=== PATIENT | female | born 1995 | race Caucasian/White ===

== ENCOUNTER 2018-04-26 10:41 | Outpatient (CLI) | payer MEDICAID, SELFPAY ==
[2018-04-26 12:34] LABS: Cholesterol 145 mg/dL (50-200); HDL Cholesterol 59 mg/dL (40-60); LDL CHOLESTEROL 78 mg/dL (<100); Triglyceride 57 mg/dL (30-150)
== END 2018-04-26 11:01 ==
PROVIDERS: PCP Nurse Practitioner Family; Visit Provider Nurse Practitioner Family
DX: Z13.220 Encounter for screening for lipoid disorders (principal)
CPT/HCPCS: 36415; 80061; 83721

== ENCOUNTER 2018-05-09 12:49 | Outpatient (REF) | payer MEDICAID, SELFPAY ==
--- NOTE | 2018-05-09 11:00 | PAPFT_PTH ---
PATIENT: Jayla Botello LOC: [facility] U#:[id number] AGE/SX: 23/F ROOM: RE05/09/[address]: MICHAEL Ulloa : 1995 BED: DIS: 05/09/2018 SPEC #: [id number] RECD: 05/09/18 13:14 STATUS: CADEN RETamar #: [id number] KATHY: 05/09/18 11:[address]: Alana Thompson DEPT: [facility] Cytology RECD BY: Janet Yip ENTERED: 05/09/18 13:15 SP TYPE: PAPFT OLIVA DR: Chelsea Alfred APRN Tissues: 1 - CX/ENDOCX FOR PAP SMEARS Procedures: PAP THIN PREP/UVM Screening Comments: [id number]
== END 2018-05-09 13:09 ==
LOC: LBN 12:49
PROVIDERS: PCP Nurse Practitioner Family; Visit Provider Nurse Practitioner Family
DX: Z12.4 Encounter for screening for malignant neoplasm of cervix (principal)
CPT/HCPCS: 88142

== ENCOUNTER 2018-07-18 14:22 | Emergency (ER) | payer MEDICAID, SELFPAY ==
[2018-07-18 14:39] VITALS: BP 132/63; PULSE 82; RESP 16; TEMP 36.7; O2SAT 96
--- NOTE | 2018-07-18 15:53 | ED.GENADUL_ITS ---
Discharge Plan Disposition Patient Disposition: HOME Discharge Details Chief Complaint: Abd Prob Clinical Impression: Umbilical pain, Cellulitis, abdominal wall Primary Care Provider: Chelsea Alfred ED Provider: Kevin Snyder Home Meds and New Rx's Prescriptions: New cephalexin [Keflex] 500 mg capsule 500 mg PO QID Qty: 39 RF: 0 doxycycline hyclate 100 mg tablet 100 mg PO BID Qty: 19 RF: 0 Continued levonorgestrel-ethinyl estrad [Aviane] 0.1-20 mg-mcg tablet 1 tab PO DAILY Qty: 84 RF: 3 albuterol sulfate [ProAir HFA] 8.5 GM HFA aerosol inhaler 2 puff Inhalation Q4H PRN Qty: 1 RF: 4 Discharge Instructions Instructions: Cellulitis (ED) Additional Instructions: Please keep bellybutton clean and dry. Please take antibiotic as prescribed. Please follow-up in general surgery clinic early next week. Call for an appointment. Return to the ER for any worsening or new concerning symptoms. Stand Alone Forms: Work Release Referrals: Chelsea Alfred NP [Primary Care Provider] - Michelle Weathers MD [ [facility] STAFF PHYSICIAN] - Discharge Data Discharge Date/Time-TO BE ENTERED AT DEPARTURE: 07/18/18 16:35 Medical Decision Making 23-year-old female here with purulent discharge from umbilicus. Localized tenderness about the umbilicus with no swelling or induration. No abdominal mass. Consider urachal remnant and infection versus cellulitis. Plan to treat with Keflex. I called and spoke with Dr. Escobar who agrees with oral antibiotic and follow-up in clinic. I explained treatment plan to patient and her mother. I advised return immediately should she have any worsening or new concerning symptoms. HPI General Mode of arrival: ambulatory . Date/Time Provider Initiated Documentation: 07/18/18 15:09 . Limitations to Documentation: no limitations . Information obtained by: patient and family . HPI Narrative: 23-year-old female here with clear yellow discharge from bellybutton. This started yesterday. Symptoms have persisted. Area is also noted to be sore. No redness. No trauma. This is not happened in the past. No associated fever or rash. Related Data Home Medications Medication Instructions Recorded Confirmed albuterol sulfate [ProAir HFA] 2 puff INHALATION Q4H PRN #1 05/15/17 05/09/18 inhaler levonorgestrel-ethinyl estradiol 1 tab PO DAILY #84 tab 05/09/18 07/18/18 0.1 mg-20 mcg tablet cephalexin [Keflex] 500 mg PO QID #39 cap 07/18/18 doxycycline hyclate 100 mg PO BID #19 tab 07/18/18 Previous Rx's Medication Instructions Recorded albuterol sulfate [ProAir HFA] 2 puff INHALATION Q4H PRN #1 05/15/17 inhaler levonorgestrel-ethinyl estradiol 1 tab PO DAILY #84 tab 05/09/18 0.1 mg-20 mcg tablet cephalexin [Keflex] 500 mg PO QID #39 cap 07/18/18 doxycycline hyclate 100 mg PO BID #19 tab 07/18/18 Allergies Allergy/AdvReac Type Severity Reaction Status Date / Time No Known Allergies Allergy Verified 07/22/18 15:28 General Stated Complaint: Abd Prob SHIREEN: 3 Review of Systems Review of Systems All systems reviewed & are unremarkable except as noted in HPI and below PFSH Medical History Contraception (Acute) Obesity (BMI 30.0-34.9) (Chronic) Intermittent asthma (Chronic 12/01/15) 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 Uncle Diabetes Paternal Grandmother Diabetes Paternal Grandfather Kidney malignancy Other Pancreatic cancer Social History Smoking/Tobacco Use Status: Never Alcohol Intake: current Alcohol Intake frequency: holidays/special occasions only Drug use: Never Substance use type: does not use Adopted: No Caregiver/Support person: No Foster care: No Household members: family and other Details: lives with parents current occupation: [employer] Pets and animals: Yes Sexually active: No Do you think of yourself as: straight/heterosexual Current gender identity: female What type of physical activity do you participate in: walking Frequency: 5-6 times per week Seatbelt use: always Helmet use: Yes Drive intox or ride w/intox 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 Working smoke detector in home: Yes Fire extinguisher in home: Yes Firearms in home: Yes Firearms unloaded and locked: Yes Do you feel safe in your relationship?: Yes Female Reproductive History Menstrual control method: pills History History 0 Para Hx # Term Pregnancies Multiple births Hx # Pregnancies Ectopic pregnancies AB induced Hx Number of Living Children AB spontaneous Exam Const General: cooperative and no acute distress HENMT Mouth: moist mucous membranes Eyes Conjunctivae: normal conjunctivae Sclera: normal sclerae Resp Auscultation: clear to auscultation bilaterally, no rales, no rhonchi and no wheezes Cardio Jugular venous pressure: no JVD Rate: regular rate and not tachycardic Rhythm: regular rhythm GI Palpation: soft, not firm, no guarding, no masses, not rigid and nontender Other: scant clear discharge noted from umbilicus, no purulence, no induration or fluctuance, no erythema Skin General skin exam: no rashes or lesions noted Rashes: no rashes Neuro General: alert, awake, oriented x3 and tone normal Extrem General: no edema Course Vital Signs Temperature 36.7 C 07/18/18 14:39 Pulse 82 07/18/18 14:39 Respiratory Rate 16 07/18/18 14:39 Blood Pressure 132/63 07/18/18 14:39 Pulse Oximetry 96 07/18/18 14:39 Temperature 36.7 C 07/18/18 14:39 Temperature Source Skin 07/18/18 14:39 Pulse 82 07/18/18 14:39 Respiratory Rate 16 07/18/18 14:39 Respiratory Effort Non-Labored 07/18/18 14:39 Blood Pressure 132/63 07/18/18 14:39 Blood Pressure Position Sitting 07/18/18 14:39 Pulse Oximetry 96 07/18/18 14:39 Oxygen Delivery Method Room Air 07/18/18 14:39 Oxygen Flow Rate 0 07/18/18 14:39 Pain Level 7 07/18/18 14:39
[2018-07-18] MEDS: Cephalexin 500 MG CAP PO (16:29)
[2018-07-18] MEDS: Doxycycline Hyclate 100 MG CAP PO (16:29)
[2018-07-18 16:40] VITALS: BP 128/61; PULSE 79; RESP 16; TEMP 36.7; O2SAT 98
== END 2018-07-18 16:35 | disposition home or self-care (01) ==
PROVIDERS: Emergency Provider Student in an Organized Health Care Education/Training Program; PCP Nurse Practitioner Family
DX: R10.33 Periumbilical pain (principal); L03.311 Cellulitis of abdominal wall
CPT/HCPCS: 99283

== ENCOUNTER 2019-04-22 10:49 | Emergency (ER) | payer MEDICAID, SELFPAY ==
[2019-04-22 10:58] VITALS: BP 127/84; PULSE 93; RESP 18; TEMP 36.1; O2SAT 98
== END 2019-04-22 12:13 ==
LOC: ER 11:01
PROVIDERS: PCP Nurse Practitioner Family
DX: Z53.29 Procedure and treatment not carried out because of patient's decision for other reasons (principal)

== ENCOUNTER 2019-05-12 10:30 | Outpatient (REF) | payer MEDICAID, SELFPAY ==
--- NOTE | 2019-05-12 10:15 | PAPFT_PTH ---
PATIENT: Jayla Botello LOC: [facility] U#:[id number] AGE/SX: 24/F ROOM: RE05/12/[address]: MICHAEL Ulloa : 1995 BED: DIS: 05/12/2019 SPEC #: [id number] RECD: 05/12/19 12:39 STATUS: CADEN REQ #: [id number] KATHY: 05/12/19 10:[address]: Alana Thompson DEPT: [facility] Cytology RECD BY: Janet Yip ENTERED: 05/12/19 12:40 SP TYPE: PAPFT OTHR DR: Chelsea Alfred APRN Tissues: 1 - CX/ENDOCX FOR PAP SMEARS Procedures: PAP THIN PREP/UVM Screening Comments: [id number]
[2019-05-13 13:51] LABS: Chlamydia Result Negative (Negative); GC Result Negative (Negative)
== END 2019-05-12 10:50 ==
LOC: LBN 10:30
PROVIDERS: PCP Nurse Practitioner Family; Visit Provider Nurse Practitioner Family
DX: Z11.3 Encounter for screening for infections with a predominantly sexual mode of transmission (principal); Z12.4 Encounter for screening for malignant neoplasm of cervix
CPT/HCPCS: 87491; 87591; 88142

== ENCOUNTER 2019-09-16 07:14 | Emergency (ER) | payer MEDICAID, SELFPAY ==
[2019-09-16 07:19] VITALS: BP 127/78; PULSE 104; RESP 16; TEMP 37.1; O2SAT 97
--- NOTE | 2019-09-16 08:16 | ED.GENADUL_ITS ---
Discharge Plan Disposition Patient Disposition: HOME Condition: Stable Discharge Details Chief Complaint: RespSymp Clinical Impression: Asthma exacerbation, Congestion of left ear Primary Care Provider: Chelsea Alfred ED Provider: Hedy Medrano Home Meds and New Rx's Prescriptions: New prednisone 20 mg tablet 60 mg PO DAILY 5 Days Qty: 15 RF: 0 fluticasone propionate 50 mcg/actuation spray,suspension 1 spray DAI DAILY 7 Days Qty: 11.1 RF: 0 Continued levonorgestrel-ethinyl estrad [Aviane] 0.1-20 mg-mcg tablet 1 tab PO DAILY Qty: 84 RF: 4 albuterol sulfate [ProAir HFA] 8.5 GM HFA aerosol inhaler 2 puff Inhalation Q4H PRN Qty: 1 RF: 4 Discharge Instructions Instructions: Asthma (ED) Additional Instructions: Follow up with primary care provider in 3-5 days. Return to ED sooner if any worsening or concerns. Increase oral fluids. Please take Tylenol or Ibuprofen with food every 4-6 hours as needed for pain and swelling. Take medications as directed continue using your inhaler 1 to 2 puffs every 4 hours as needed for wheezing. Stand Alone Forms: PENDING COVID-19 TESTING, Work Release Referrals: Chelsea Alfred, [facility] [Primary Care Provider] - Medical Decision Making Patient is a history of asthma on initial exam she has diminished lung sounds bilaterally is not moving much air and seems pretty tight respiratory osorio so at this time I feel patient would benefit from nebulizer treatment DuoNeb ordered. Since we are doing a neb COVID and strep swabs ordered versus doing outpatient testing. 0900: Patient reevaluation, feels better after nebulizer treatment, lung sounds have increased movement of air, no wheezing noted. Discussed home care and medications. Will place patient on a 5-day stent of 60 mg prednisone encouraged continued use of hand-held and Angela, and given fluticasone nasal spray for sinus congestion and ear pain. Given work note to be off work until Sunday pending negative Covid test. Currently the patient does have a concerning travel history to a high risk area, and/or direct or known indirect exposure to an area and/or patient's with known coronavirus activity. The patient demonstrates some concerning red flags as noted by the CDC for coronavirus including fever, cough, and/or shortness of breath. The patient looks notably clinically well, and does not demonstrate evidence of respiratory distress, significant or severe illness, or sepsis. Per CDC recommendations, coronavirus testing has been performed and is approved by the [facility]. Additionally patient currently does not demonstrate symptoms indicative of admission or further observation here. At this time based on the patient's current clinical picture symptoms are likely secondary to a non- coronavirus viral illness. Out of an abundance of precaution taking into account the current level of national concern, the patient's entire clinical picture, and CDC recommendations, the patient can be discharged home. Per CDC recommendations we will recommend a 14-day quarantine of the patient I have discussed good handwashing techniques, the importance of a mask, and we have also included CDC recommendations for home monitoring and isolation. I have extensively reviewed the treatment plan and discharge instructions with the patient. I have addressed all patient concerns at this time. The patient was made aware of what symptoms to monitor for that would warrant a return to the emergency department. I also discussed the importance of calling the patient's PCP, as well as the ED for any concerns or prior to return. Discussed the plan with the patient, they demonstrate verbal understanding and agreement with our assessment and plan at this time. This text was generated using [employer] dictation system, please disregard any oddities of phrase or misspellings. HPI General Mode of arrival: ambulatory . Date/Time Provider Initiated Documentation: 09/16/19 07:33 . Limitations to Documentation: no limitations . Information obtained by: patient . HPI Narrative: 24-year-old female presents to the ED with cough, left ear pain, head pressure x1 week. She does have a history of asthma and uses a handheld inhaler which she used today. She does work at a assisted living facility. She denies any recent travel, no fever. Related Data Home Medications Medication Instructions Recorded Confirmed albuterol sulfate [ProAir HFA] 2 puff INHALATION Q4H PRN #1 05/15/17 09/16/19 inhaler levonorgestrel-ethinyl estradiol 1 tab PO DAILY #84 tab 05/12/19 09/16/19 0.1 mg-20 mcg tablet fluticasone propionate 1 spray DAI DAILY 7 Days #11.1 ml 09/16/19 prednisone 60 mg PO DAILY 5 Days #15 tab 09/16/19 Previous Rx's Medication Instructions Recorded albuterol sulfate [ProAir HFA] 2 puff INHALATION Q4H PRN #1 05/15/17 inhaler levonorgestrel-ethinyl estradiol 1 tab PO DAILY #84 tab 05/12/19 0.1 mg-20 mcg tablet fluticasone propionate 1 spray DAI DAILY 7 Days #11.1 ml 09/16/19 prednisone 60 mg PO DAILY 5 Days #15 tab 09/16/19 Allergies Allergy/AdvReac Type Severity Reaction Status Date / Time No Known Allergies Allergy Verified 09/16/19 07:25 General Stated Complaint: RespSymp SHIREEN: 3 Review of Systems Narrative: Constitutional: Negative for weight loss, alert and oriented, well groomed, normal body habitus, appears comfortable. HEENT: Denies trauma, headaches, blurry vision, nasal discharge, sore throat, trouble swallowing. Chest: Denies chest pain, palpitations, irregular rhythm, hypertension. She is mildly tachycardic at 104 per Respiratory: Denies hemoptysis. Positive shortness of breath, positive dry cough. History of asthma. GI: Denies abdominal pain, nausea, vomiting, diarrhea, constipation. : Denies dysuria, hematuria, flank pain, rectal bleeding. Neuro: Denies dizziness, blurry vision, weakness, syncope, headache or facial numbness. Hematologic: Denies easy bruising, intolerance to heat or cold, hair loss. 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 Uncle Diabetes Paternal Grandmother Diabetes Paternal Grandfather Kidney malignancy Other Pancreatic cancer Social History Smoking/Tobacco Use Status: Never Alcohol Intake: current Alcohol Intake frequency: holidays/special occasions only Drug use: Never Substance use type: does not use Adopted: No Caregiver/Support person: No Foster care: No Household members: family and other Details: lives with parents current occupation: [employer] Pets and animals: Yes Sexually active: No Do you think of yourself as: straight/heterosexual Current gender identity: female What type of physical activity do you participate in: walking Frequency: 5-6 times per week Seatbelt use: always Helmet use: Yes Drive intox or ride w/intox 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 Appears stated age. Normal body habitus. Head: Normocephalic, no trauma. Eyes: Pupils PERRLA, Red reflex noted, EOM's intact. Eyelids symmetrical without lesions, discharge, or swelling. ENT: Right TM partially visualized due to cerumen impaction, left TM is bulging, no erythema, external ear normal to inspection, no mastoid TTP, swelling, or erythema, Nasal turbinates WNL, no nasal discharge. Normal dentition, Posterior pharynx erythema noted, left tonsils 2+ right tonsils 1+, no exudate. Chest: RRR, Normal S1, S2, distal pulses intact. Resp: Lungs diminished to auscultation bilaterally, no wheezes, rales, or rhonchi. Dry cough noted. Musculoskeletal: Normal gait, 5/5 strength to all four extremities. Skin: No suspicious rashes or lesions. Capillary refill less than 2 sec. Neurologic: Cranial nerves II-XII intact. Alert and oriented x 3. DTR's intact. Hematologic/Lymphatic: No ecchymosis, no lymphadenopathy. Course Vital Signs Vital signs: Vital Signs Temperature 37.1 C 09/16/19 07:19 Pulse 104 H 0526/20 07:19 Respiratory Rate 16 09/16/19 07:19 Blood Pressure 127/78 09/16/19 07:19 Pulse Oximetry 97 09/16/19 07:19 Temperature 37.1 C 09/16/19 07:19 Temperature Source Oral 09/16/19 07:19 Pulse 104 H 09/16/19 07:19 Respiratory Rate 16 09/16/19 07:19 Respiratory Effort Non-Labored 09/16/19 07:26 Respiratory Depth Normal 09/16/19 07:26 Blood Pressure 127/78 09/16/19 07:19 Blood Pressure Position Sitting 09/16/19 07:19 Pulse Oximetry 97 09/16/19 07:19 Oxygen Delivery Method Room Air 09/16/19 07:19 Oxygen Flow Rate 0 09/16/19 07:19 Pain Level 10 09/16/19 07:19
[2019-09-16] MEDS: Albuterol/Ipratropium 3 ML UPD VIAL UPD (08:30)
[2019-09-16] MEDS: predniSONE 20 MG TAB 60 MG PO (08:30)
[2019-09-16 09:10] VITALS: BP 127/78; PULSE 116; RESP 15; TEMP 37; O2SAT 98
[2019-09-17 21:03] LABS: COVID-19 RT-PCR UVMMC Result Negative (Negative)
== END 2019-09-16 09:11 | disposition home or self-care (01) ==
PROVIDERS: Emergency Provider Registered Nurse Emergency; PCP Nurse Practitioner Family
DX: J45.901 Unspecified asthma with (acute) exacerbation (principal); H93.8X2 Other specified disorders of left ear
CPT/HCPCS: 87880; 94640; 99283; U0003; 87081; J7512; J7620

== ENCOUNTER 2020-05-21 14:50 | Outpatient (REF) | payer OTHER, SELFPAY ==
--- NOTE | 2020-05-21 13:15 | PAPFT_PTH ---
PATIENT: Jayla Botello LOC: [facility] U#:[id number] AGE/SX: 25/F ROOM: RE05/21/[address]: MICHAEL Ulloa : 1995 BED: DIS: 05/21/2020 SPEC #: [id number] RECD: 05/21/20 17:41 STATUS: CADEN RETamar #: [id number] KATHY: 05/21/20 13:[address]: Alana Thompson DEPT: [facility] Cytology RECD BY: Janet Yip ENTERED: 05/21/20 17:41 SP TYPE: PAPFT OLIVA DR: Chelsea Alfred, MISHA Tissues: 1 - CX/ENDOCX FOR PAP SMEARS Procedures: PAP THIN PREP/UVM Screening Comments: [id number]
== END 2020-05-21 15:10 ==
LOC: LBN 14:50
PROVIDERS: PCP Nurse Practitioner Family; Visit Provider Nurse Practitioner Family
DX: Z12.4 Encounter for screening for malignant neoplasm of cervix (principal)
CPT/HCPCS: 88142

== ENCOUNTER 2021-02-17 02:09 | Outpatient (CLI) | payer OTHER, SELFPAY ==
[2021-02-18 10:13] LABS: HIV-1/2 Ag & Ab Screen Negative (Negative)
[2021-02-18 10:33] LABS: Hepatitis C Ab w Rflx HCV PCR Negative (Negative)
== END 2021-02-17 02:10 | disposition home or self-care (01) ==
LOC: LBO 02:09
PROVIDERS: PCP Nurse Practitioner Family; Visit Provider Nurse Practitioner Family
DX: Z11.59 Encounter for screening for other viral diseases (principal); Z11.4 Encounter for screening for human immunodeficiency virus [HIV]
CPT/HCPCS: 36415; 86803; 87389

== ENCOUNTER 2021-03-07 03:41 | Outpatient (CLI) | payer OTHER, SELFPAY | END 2021-03-07 03:42 | disposition home or self-care (01) | LOC: LBO 03:41 | PROVIDERS: PCP Nurse Practitioner Family; Visit Provider Nurse Practitioner Family | DX: E66.9 Obesity, unspecified (principal); Z13.1 Encounter for screening for diabetes mellitus; Z83.3 Family history of diabetes mellitus | CPT/HCPCS: 36415; 83036 ==

== ENCOUNTER 2022-10-04 16:27 | Outpatient (CLI) | payer OTHER, SELFPAY ==
[2022-10-04 16:04] LABS: Microalb ug/mg Crea 10.7 ug/mg Cr
[2022-10-04 17:34] LABS: ALT 31 U/L (14-59); AST 15 U/L (15-37); Albumin 3.9 g/dL (3.4-5.0); Alkaline Phosphatase 68 U/L (46-116); Anion Gap 8.8 mmol/L (3-11); BUN 11 mg/dL (7-18); Bilirubin, Total 0.2 mg/dL (0.2-1.0); CO2 28.2 mmol/L (21.0-32.0); CREATININE 0.8 mg/dL (0.55-1.02); Calcium 9.3 mg/dL (8.5-10.1); Chloride 105 mmol/L (98-107); Glucose 94 mg/dL (74-106); Potassium 4.1 mmol/L (3.5-5.1); Sodium 142 mmol/L (136-145); Total Protein 8.1 g/dL (6.4-8.2)
== END 2022-10-04 16:28 | disposition home or self-care (01) ==
LOC: LBO 16:28
PROVIDERS: PCP Nurse Practitioner Family; Visit Provider Nurse Practitioner Family
DX: E11.9 Type 2 diabetes mellitus without complications (principal); Z51.81 Encounter for therapeutic drug level monitoring
CPT/HCPCS: 36415; 80053; 82043; 82570

== ENCOUNTER 2023-11-27 03:19 | Outpatient (CLI) | payer OTHER, SELFPAY ==
[2023-11-27] MEDS: Methacholine 100 MG VIAL IH (17:06)
[2023-11-27] MEDS: Inhaler, Assist Device 1 EACH MC (17:06)
[2023-11-27] MEDS: Albuterol HFA 18 GM 200 PUFF INH IH (17:06)
--- NOTE | 2023-11-28 08:49 | W.PFT ---
Date of service: 11/27/23 Time of Service: 14:00 Pulmonary Function Test Result Requesting Provider Blanca Estrada Indications: Asthma Impression PFTs Spirometry shows normal FEV1/FVC of 74%. Normal FEV1 with no reversibility after bronchodilator. Flow volume curve is normal Methacholine challenge Baseline FEV1 of 3.48 L. After incremental doses of methacholine patient demonstrated a 41% decrease in FEV1 at 0.25 mg/mL. Impression Positive study consistent with asthma Clinical Correlation therefore is recommended.
== END 2023-11-27 03:20 | disposition home or self-care (01) ==
LOC: RT 03:19
PROVIDERS: PCP Nurse Practitioner Adult Health; Visit Provider Nurse Practitioner Family
DX: J45.20 Mild intermittent asthma, uncomplicated (principal)
CPT/HCPCS: 00123; 94060; 94070; 94726; 94729; 94010; J7674

== ENCOUNTER 2024-01-10 03:00 | Outpatient (CLI) | payer OTHER, SELFPAY ==
[2024-01-10 08:35] LABS: Hemoglobin A1C 5.5 % (<5.7)
[2024-01-10 08:46] LABS: ALT 24 U/L (14-59); AST 13 U/L (15-37); Albumin 3.8 g/dL (3.4-5.0); Alkaline Phosphatase 62 U/L (46-116); Anion Gap 8.7 mmol/L (3-11); BUN 14 mg/dL (7-18); Bilirubin, Total 0.22 mg/dL (0.2-1.0); CO2 27.3 mmol/L (21.0-32.0); CREATININE 0.9 mg/dL (0.55-1.02); Calcium 9.2 mg/dL (8.5-10.1); Calculated LDL 82 mg/dL (<100); Chloride 104 mmol/L (98-107); Cholesterol 164 mg/dL (<200); Estimated GFR 90.42 (mL/min/1.73m2); Glucose 102 mg/dL (74-106); HDL Cholesterol 60 mg/dL (40-60); Potassium 4.5 mmol/L (3.5-5.1); Sodium 140 mmol/L (136-145); TSH (W/Ref FT4) 1.96 uIU/mL (0.36-3.74); Total Protein 8.4 g/dL (6.4-8.2); Triglyceride 114 mg/dL (<150)
== END 2024-01-10 03:01 | disposition home or self-care (01) ==
LOC: LBO 03:00
PROVIDERS: PCP Nurse Practitioner Adult Health; Referring Provider Nurse Practitioner Adult Health; Visit Provider Nurse Practitioner Adult Health
DX: E11.9 Type 2 diabetes mellitus without complications (principal); E66.09 Other obesity due to excess calories; Z68.38 Body mass index [BMI] 38.0-38.9, adult
CPT/HCPCS: 36415; 80053; 80061; 83036; 84443

== ENCOUNTER 2024-11-13 02:34 | Outpatient (CLI) | payer OTHER, SELFPAY ==
[2024-11-13 16:23] LABS: Abs Immature Grans 0.02 10^3/uL (0.0-0.06); HCT 38.3 % (36.0-46.0); HGB 12.3 g/dL (11.2-15.7); Immature Grans % 0.2 %; MCH 28.5 pg (27.0-33.0); MCHC 32.1 % (32.0-36.0); MCV 89 fL (80-95); MPV 8.7 fL (8.0-11.0); Platelet Count 324 10^3/uL (130-400); RBC 4.32 10^6/uL (3.93-5.22); RDW 13.2 % (11.7-14.6); RDW-SD 43.0 fL; WBC 8.34 10^3/uL (4.4-10.8)
[2024-11-13 16:33] LABS: Hemoglobin A1C 5.2 % (<5.7)
[2024-11-13 17:24] LABS: ALT 19 U/L (14-59); AST 12 U/L (15-37); Albumin 3.8 g/dL (3.4-5.0); Alkaline Phosphatase 50 U/L (46-116); Anion Gap 10.7 mmol/L (3-11); BUN 10 mg/dL (7-18); Bilirubin, Total 0.2 mg/dL (0.2-1.0); CO2 26.3 mmol/L (21.0-32.0); Calcium 8.9 mg/dL (8.5-10.1); Chloride 104 mmol/L (98-107); Estimated GFR 121.49 (mL/min/1.73m2); Glucose 66 mg/dL (74-106); Lipase 30 U/L (<78); Potassium 3.9 mmol/L (3.5-5.1); Sodium 141 mmol/L (136-145); Total Protein 8.0 g/dL (6.4-8.2)
== END 2024-11-13 02:35 | disposition home or self-care (01) ==
LOC: LBO 02:34
PROVIDERS: PCP Nurse Practitioner Adult Health; Visit Provider Nurse Practitioner Adult Health
DX: Z51.81 Encounter for therapeutic drug level monitoring (principal); J45.20 Mild intermittent asthma, uncomplicated; R73.03 Prediabetes; E66.09 Other obesity due to excess calories; Z68.38 Body mass index [BMI] 38.0-38.9, adult
CPT/HCPCS: 36415; 80053; 83690; 83036; 85025

== ENCOUNTER 2025-04-13 15:51 | Outpatient (CLI) | payer OTHER, SELFPAY ==
--- NOTE | 2025-04-13 15:00 | DI.RAD_ITS ---
Exam(s) XR WRIST RT COMPLETE EXAM: XR WRIST RT COMPLETE CLINICAL HISTORY: right wrist pain. TECHNIQUE: 2D digital imaging was performed of the right wrist. Three views were obtained. PA, lateral and oblique views were obtained. COMPARISON: No exams were available for comparison FINDINGS: BONES: No acute fracture is present. No bony destructive lesion is seen. JOINTS: The carpal bones are normally aligned. SOFT TISSUE: Normal. IMPRESSION: Unremarkable radiographs of the right wrist. DATA REPOSITORY: RADIATION DOSE DELIVERED:
== END 2025-04-13 15:52 | disposition home or self-care (01) ==
LOC: DIORS 15:51
PROVIDERS: PCP Nurse Practitioner Adult Health; Visit Provider Physician Assistant
DX: M25.531 Pain in right wrist (principal)
CPT/HCPCS: 73110

== ENCOUNTER 2025-04-22 11:51 | Day surgery (SDC) | payer OTHER, SELFPAY ==
--- NOTE | 2025-04-22 08:38 | ANES.PREOP_ITS ---
General Info Date of Service Date Performed: 04/22/25 Height: 5 ft 9 in Weight: 96 kg Body Mass Index (BMI): 31.2 Surgical Procedure: Operation Date: 04/22/25 14:55 Proposed Procedure Side Surgeon p Wrist Volar Cyst Excision Right Hammad Garnica MD Meds Allergies and Home Medications Allergies Allergy/AdvReac Type Severity Reaction Status Date / Time No Known Allergies Allergy Verified 04/22/25 12:17 Home Medication ?Medication ?Instructions ?Recorded norgestimate 0.25 mg-ethinyl 1 tab PO DAILY 02/19/23 estradiol 0.035 mg tablet (Sprintec (28)) albuterol sulfate 90 mcg/actuation See Rx Instructions .Route 11/09/23 aerosol inhaler .COMPLEX #9 grams inhalational spacing device #10 ea 11/09/23 (Aerovent Plus spacer) cetirizine 10 mg capsule (Zyrtec) 10 mg PO DAILY PRN 0 12/27/23 fluticasone propionate 50 2 spray intranasal DAILY PRN nasal 05/07/24 mcg/actuation nasal congestion #16 grams spray,suspension (Flonase Allergy Relief) ondansetron HCl 4 mg tablet 4 mg PO Q8H PRN nausea and 05/07/24 vomiting #30 tabs famotidine 40 mg tablet (Pepcid) 40 mg PO BID PRN hear tburn #180 01/19/25 tabs tirzepatide (weight loss) 7.5 7.5 mg (0.5 mL) subcut Q WEEK #2 mL 01/19/25 mg/0.5 mL subcutaneous pen injector (Zepbound) Symbicort 80 mcg-4.5 mcg/actuation 1 - 2 puff inhalati on BID #6.9 01/21/25 HFA aerosol inhaler grams (budesonide-formoterol) Current Visit Medications: Current Medications Generic Name Dose Route Start Last Admin Trade Name Freq PRN Reason Stop Dose Admin Ringer's Solution 1,000 mls @ 80 mls/hr 04/22/25 06:00 IV 04/22/25 23:59 INFUSION DEDRICK Cefazolin Sodium/Dextrose 2 gm in 50 mls @ 100 mls/hr 04/22/25 06:00 Ancef Duplex IVPB 04/22/25 23:59 PREOP DEDRICK Sodium Chloride 0 ml 04/22/25 06:00 Normal Saline Flush 10 Ml Syr IV 04/22/25 23:59 PRN PRN Sodium Chloride 0 ml 04/22/25 06:00 Normal Saline 10 Ml Vial IJ 04/22/25 23:59 DIRECTED PRN Sterile Water 0 ml 04/22/25 06:00 Water,Injection,Sterile 10 Ml Vial IJ 04/22/25 23:59 DIRECTED PRN PFSH Active Problems Active Problems: Problem Status Onset Code Rash and nonspecific skin eruption Acute R21 Prediabetes Acute R73.03 Ganglion cyst of volar aspect of right wrist Acute ~06/2023 M67.431 Pain in left foot Acute M79.672 Obesity Chronic E66.9 Intermittent asthma Chronic 12/01/15 J45.20 Medical History Medical History Type 2 diabetes mellitus ?Incorrect diagnosis (see 07/19/23 note) Gestational diabetes Slipped upper femoral epiphysis (01/13/11) SCFE 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 Surgical History Surgical History History of hip surgery x3 Tooth extraction extraction 4 wisdom teeth Tobacco Smoking/Tobacco Use Status: Never Passive smoking exposure: No Alcohol Alcohol Intake: current Alcohol intake frequency: holidays/special occasions only Substance Use Substance use: Never Substance use type: does not use Prental History History 0 Para Hx # Term Pregnancies Multiple births Hx # Pregnancies Ectopic pregnancies AB induced Hx Number of Living Children AB spontaneous Anesthesia Assessment and Plan Anesthesia History Personal History: No History of Anesthesia Complications Family History: No Family History of Anesthesia Complications Exercise Tolerance Exercise Tolerance: Metabolic Equivalents>4 Cardiac & Pulmonary Exam Cardiac Exam: Normal S1/S2 Heart Sounds Pulmonary Exam: Clear Bilateral Breath Sounds Implantable Cardiac Device Does patient have a Pacemaker or an ICD?: No Airway Exam Known Difficult Airway: No Mallampati Class: 4 Mouth Opening: Narrow (< 3cm) Thyromental Distance: Less than 3 cm Neck Range of Motion: Full ROM Neck Circumference: Normal Teeth Condition: Normal Dentition ASA Classification ASA Score: ASA 2 Emergency Case?: No NPO Status NPO Status: NPO Clears >2 hours, Solids >8 hours Status Status: Negative HCG Anesthesia Plan Resuscitation Status: Full Code Anesthesia Technique: General Anesthesia Airway Planned: Natural Airway Monitors Used: Standard Monitors Preoperative Comments:: 30 yo for volar cyst excision. Sig PMHx: asthma (albuterol, Symbicort), GERD (famotidine), PreDM (Zepbound). Never smoker, occ EtOH. PFT: asthma.
[2025-04-22 12:17] VITALS: BP 131/92; PULSE 83; RESP 12; TEMP 36.4; O2SAT 100
[2025-04-22 12:41] VITALS: BMI 31.2
[2025-04-22] MEDS: Lactated Ringers 1,000 ML 80 ML IV (12:45)
[2025-04-22] MEDS: ceFAZolin 2 GM/50 ML BAG IVPB (13:32)
[2025-04-22] MEDS: Sodium Bicarbonate 50 MEQ/50 ML VIAL (13:47)
[2025-04-22] MEDS: Lidocaine 1% Pres-Free W/EPI 1/200,000 10 ML VIAL (13:47)
--- NOTE | 2025-04-22 14:03 | PDOC.DSDIS_ITS ---
Date of service: 04/22/25 Discharge Plan Disposition Patient Disposition: Home Condition: Good Discharge Details Reason For Visit: Excision cyst R wrist Attending Provider: Hammad Garnica Primary Care Provider: Jaci Wilson Home Meds and New Rx's Prescriptions: New acetaminophen 500 mg tablet 500 mg PO TID Qty: 90 0RF hydrocodone-acetaminophen 5-325 mg tablet 1 tab PO Q6H PRN (Reason: pain) Qty: 4 0RF ibuprofen 600 mg tablet 600 mg PO TID PRN (Reason: pain) Qty: 90 0RF Continued Zyrtec 10 mg capsule 10 mg PO DAILY PRN (DME) Aerovent Plus Spacer See Rx Instructions .Route Qty: 10 1RF Rx Instructions: As directed albuterol sulfate 90 mcg/actuation HFA aerosol inhaler See Rx Instructions .ROUTE .COMPLEX Qty: 9 0RF Dose Instruction: INHALE 1 TO 2 PUFFS BY MOUTH EVERY 4 HOURS NEEDED FOR SHORTNESS OF BREATH AND FOR WHEEZING Rx Instructions: INHALE 1 TO 2 PUFFS BY MOUTH EVERY 4 HOURS NEEDED FOR SHORTNESS OF BREATH AND FOR WHEEZING famotidine [Pepcid] 40 mg tablet 40 mg PO BID PRN (Reason: heartburn) Qty: 180 1RF Zepbound 7.5 mg/0.5 mL pen injector 7.5 mg subcut QWEEK Qty: 2 2RF Rx Instructions: Dose increase 01/19/2025 fluticasone propionate [Flonase Allergy Relief] 50 mcg/actuation spray,suspension 2 spray intranasal DAILY PRN (Reason: nasal congestion) Qty: 16 0RF Rx Instructions: administer into each nostril for chronic rhinitis ondansetron HCl 4 mg tablet 4 mg PO Q8H PRN (Reason: nausea and vomiting) Qty: 30 0RF Rx Instructions: Medication induced nausea norgestimate-ethinyl estradiol [Sprintec (28)] 0.25-35 mg-mcg tablet 1 tab PO DAILY budesonide-formoterol [Symbicort] 80-4.5 mcg/actuation HFA aerosol inhaler 1 - 2 puff inhalation BID Qty: 6.9 3RF Rx Instructions: Please dispense 3 units Pharm: Is there a less expensive option? 12/27/2023 01/21/2025: Please fill Brand Symbicort as this is insurance preferred. Discharge Instructions Additional Instructions: Excision Wrist Cyst Discharge Instructions Activity: You should keep the hand elevated as much as possible for the first few days. You may use your fingers as tolerated but avoid trying to do too much too soon. You may perform light activities with the splint in place. Dressing/Cast: Your splint should stay in place at all times. You may remove the splint for showers covering the Mepilex bandage. This bandage should remain in place until follow-up Medications: - You should take Tylenol and Ibuprofen for baseline pain control. - You have Hydrocodone for breakthrough pain. - You may apply ice over the wrist. Follow-up: 7-10 days Stand Alone Forms: Anesthesia Discharge Inst[facility] ([facility]), Portal Information Referrals: Hammad Garnica MD [ [facility] STAFF PHYSICIAN, Orthopaedic Surgical] - 05/01/25 9:45 am Equipment/Supplies: Splint Activity:: Elevate Remove Dressings/Wound Care:: Do Not Remove Shower/Bathe:: Cover Diet:: As Tolerated Discharge Orders Discharge Orders: Discharge Order (Routine); Ordered 04/22/25 Ordered By: Óscar Saldana DS: Diagnosis Discharge Diagnosis (1) Ganglion cyst of volar aspect of right wrist: Status: Acute
[2025-04-22 14:10] VITALS: BP 109/69; PULSE 91; RESP 14; TEMP 36.1; O2SAT 96
--- NOTE | 2025-04-22 14:20 | W.ANESPOSTOP ---
Postoperative Evaluation Date, Time and Location Date Performed: 04/22/25 Time Performed: 14:11 Patient Location: Day Surgery Unit Vital Signs Most Recent Imported Vital Signs: Most Recent Vital Signs Temp Pulse Resp BP Pulse Ox 36.1 C L 91 H 14 109/69 96 04/22/25 14:10 04/22/25 14:10 04/22/25 14:10 04/22/25 14:10 04/22/25 14:10 Pain Score Most Recent Pain Score: Most Recent Pain Score Pain Level 0 04/22/25 12:17 Assessment Mental Status: Awake (Alert & Oriented to Patient Baseline) Airway and Respiratory Function: Abnormal Respiratory exam (See explanation) (feel tight, neb ordered. ) Cardiovascular Function: Hemodynamically Stable Hydration Status: Adequately Hydrated Nausea & Vomiting: No Nausea or Vomiting Pain: Pt. Denies Any Pain Peripheral Nerve Block: Patient did not receive a nerve block
[2025-04-22 14:32] VITALS: BP 119/80; PULSE 78; RESP 78; TEMP 36; O2SAT 100
[2025-04-22] MEDS: Albuterol 2.5 MG/3 ML INH SOLN VIAL UPD (14:35)
[2025-04-22 14:42] VITALS: PULSE 83
--- NOTE | 2025-04-22 19:27 | ROE_ITS ---
Operative Note Operative Note PRE-OP DIAGNOSIS: Right Volar Wrist Ganglion Cyst POST-OP DIAGNOSIS: same PROCEDURE: Excision of volar wrist ganglion cyst - RIGHT wrist SURGEON: Hammad Garnica ANESTHESIA TYPE: General LMA/ETT Refer to Anesthesia Record ESTIMATED BLOOD LOSS: 0 PATHOLOGY: none sent COMPLICATIONS: None Patient was transported to: PACU Patient's condition: stable Indications: Jayla is a 30 year old female who I have seen for a volar wrist ganglion cyst. It has continued to be bothersome despite some conservative options. Its size and interference with activities continues to cause problems. Therefore, I offered excision of the volar wrist cyst. I discussed the risks to include bleeding, infection, pain, stiffness, damage to nerve and vessels, recurrence. Despite these risks, she elects to proceed. Findings: There was a volar wrist ganglion cyst which was deep to the radial artery and on the radial aspect of the volar wrist capsule. Procedure Description: Jayla was greeted in the preoperative holding area. Identity was confirmed and the correct site was identified and marked. Consent was reviewed the patient and signed. History and physical was updated. The patient to take not to the operating room placed in supine position. All bony prominences were well- padded. A nonsterile tourniquet was placed high up onto the right arm. The arms and prepped with ChloraPrep and draped in a standard fashion. The surgical site was marked on the skin and injected with 1% lidocaine with epinephrine buffered with sodium bicarbonate. The skin was incised sharply. Deeper dissection was carried out with tenotomy scissors and careful attention to vascular branches in this area. The mass was identified and was under the deeper fascia. The fascia was incised and the mass was actually under the radial artery. The radial artery was dissected off of the underlying mass and was retracted in a ulnar direction exposing the cystic structure. Once there was adequate visualization of the cyst the cyst was deflated. There was a significant bout of ganglion fluid which was removed. I then used a rongeur to remove the cyst capsule elevating off the wrist capsule. Deeper arthrotomy was also performed. There was no remnant cystic structure seen. The wound was thoroughly irrigated. There was no major arterial bleeding or other bleeding. The wound was dry. The deep layer was reapproximated with a 3-0 Vicryl. The skin was closed with a running 4-0 Monocryl followed by skin glue, gauze, and Jama wrap. The wrist was placed into a removable wrist brace. At the end the case all counts were correct. The patient was awakened from anesthesia and taken to the PACU in stable condition. There were no noted complications. Date of Procedure: 04/22/25
== END 2025-04-22 15:09 | disposition home or self-care (01) ==
PROVIDERS: PCP Nurse Practitioner Adult Health; Visit Provider Student in an Organized Health Care Education/Training Program
PROC: (CPT 25111; principal; 2025-04-22 14:45)
DX: M67.431 Ganglion, right wrist (principal); R73.03 Prediabetes; E66.9 Obesity, unspecified; Z68.31 Body mass index [BMI] 31.0-31.9, adult
CPT/HCPCS: 25111; 81025; 94640; J0690; J1100; J2004; J2250; J2405; J2704; J3010; J7613